=== PATIENT | female | born 1980 | race Caucasian/White ===

== ENCOUNTER 2020-10-24 10:17 | Emergency (ER) | payer OTHER, SELFPAY ==
--- NOTE | 2020-10-24 10:30 | ED.URI ---
HPI - URI/Sore Throat General Chief Complaint: Upper Respiratory Infection Stated Complaint: cough/congestion/chest & back pain Time Seen by Provider: 10/24/20 10:31 Source: patient and RN notes reviewed Mode of arrival: ambulatory Limitations: no limitations History of Present Illness HPI Narrative: 40-year-old female who presents to the [facility] care with complaints of cough with congestion, sinus drainage, discomfort to chest and back when coughing only. Patient states that she has had no shortness of breath or any noted wheezing, no tachypnea or accessory muscle use noted with SAO2 98% on room air. Patient states that she has not taken her temperature but has had chills and had night sweats last night. She states that she has had some yellow tinged sinus drainage and has also expectorated some yellow mucous. Patient states that she has taken Mucinex for her symptoms but no other OTC medications. Patient denies any loss of taste or smell. MD elicited complaint: cough, rhinorrhea and nasal congestion Onset (ago): day(s) (symptoms started yesterday morning) Consistency: progressively worsening Severity: moderate Pain scale (0-10): 2 Description of mucous: yellow Able to tolerate fluids by mouth: Yes Exacerbating factors: deep breaths (increased cough) Relieving factors: nothing Associated symptoms: chills, rhinorrhea, nasal congestion, cough, chest pain and other (Back pain) Treatments prior to arrival: other (Mucinex) Related Data Home Medications Medication Instructions Recorded Confirmed No Home Medications 10/24/20 10/24/20 Allergies Allergy/AdvReac Type Severity Reaction Status Date / Time aspirin Allergy Rash Verified 10/24/20 10:34 Penicillins Allergy Rash Verified 10/24/20 10:34 Sulfa (Sulfonamide Allergy Rash Verified 10/24/20 10:34 Antibiotics) Review of Systems Review of Systems: Narrative: CONSTITUTIONAL: Unknown if fever,positive chills, or sweats. EYES: Denies visual changes, redness, or discharge. ENT: Positive rhinorrhea, congestion,no sore throat, or otalgia. CARDIOVASCULAR: Reports chest pain with cough,no palpitations, or edema. RESPIRATORY: Positive cough denies dyspnea. GASTROINTESTINAL: Denies abdominal pain, nausea, vomiting, or diarrhea. GENITOURINARY: Denies dysuria or hematuria. SKIN: Denies rash or itching. MUSCULOSKELETAL: Reports back pain with cough,no other joint pain, or myalgia. NEUROLOGIC: Denies headache, numbness, or weakness. PSYCHIATRIC: Denies anxiety or depression. All systems reviewed & are unremarkable except as noted in HPI and below PMFSH Past Medical History Medical History (Updated 10/24/20 @ 11:02 by Snow Rhodes NP) Cervical cancer Surgical History Surgical History (Updated 10/24/20 @ 10:57 by Snow Rhodes NP) H/O arthroscopic knee surgery bilateral knees ACL/MCL repairs and meniscus repair left knee H/O: hysterectomy Family History Family History (Updated 10/24/20 @ 11:16 by Snow Rhodes NP) Father Heart disease Grandparent Hypertension Social History Social History (Updated 10/24/20 @ 10:58 by Snow Rhodes NP) Smoking status: Never smoker Alcohol intake: current Substance use: never Gender identity (if verbalized by the patient): Female Comments At time of signature, agree with nursing past medical, surgical, social and family history. There is no relevant family history pertinent to the presenting complaint Exam Narrative: Exam Narrative: GENERAL: Well-appearing, well-nourished,obese and in no acute distress, color pink HEAD: Normocephalic, atraumatic. EYES: PERRLA and EOMI. ENT: Nares red with clear light yellow rhinorrhea no epistaxis. Mucous membranes moist.TM's normal with good light reflex,throat red with tonsils swollen no lesions or exudates noted, post nasal drainage noted NECK: Supple.no lymphadenopathy CHEST: Clear to auscultation. No respiratory distress.SAO2 98% on room air. No tachypnea, no circumo
[2020-10-24 10:33] VITALS: BP 145/68; PULSE 78; RESP 20; TEMP 36.4; O2SAT 98
== END 2020-10-24 11:13 | disposition home or self-care (01) ==
PROVIDERS: Emergency Provider Registered Nurse
DX: J06.9 Acute upper respiratory infection, unspecified (principal); R05 Cough; Z20.828 Contact with and (suspected) exposure to other viral communicable diseases; Z85.41 Personal history of malignant neoplasm of cervix uteri
CPT/HCPCS: 87081; 87804; 87880; 99203; G0463

== ENCOUNTER 2021-10-04 10:32 | Emergency (ER) | payer OTHER, SELFPAY ==
[2021-10-04 10:46] VITALS: BP 140/88; PULSE 78; RESP 18; TEMP 36.3; O2SAT 97
--- NOTE | 2021-10-04 10:53 | ED.WOUNDLAC ---
HPI - Wound/Laceration General Chief Complaint: Wound/Laceration Stated Complaint: Animal bite Lt thumb Source: patient and RN notes reviewed Limitations: no limitations History of Present Illness HPI narrative: The overweight patient, previously mostly healthy with immunizations UTD, presents with cat bite. Patient states she was bitten yesterday by her domestic cat; she complains of mild pain and swelling to the 2 puncture wounds of her flexor left thumb tip pad. Symptoms are mild, better with elevation, associated with scant clear discharge. Discussed plan to provide antibiotics, as she is allergic to penicillin so will prescribe alternate. Related Data Allergies Allergy/AdvReac Type Severity Reaction Status Date / Time Sulfa (Sulfonamide Allergy Intermediate Gastrointestinal Verified 10/04/21 10:48 Antibiotics) Upset aspirin Allergy Mild Rash Verified 10/04/21 10:38 Penicillins Allergy Mild Rash Verified 10/04/21 10:38 Review of Systems Review of Systems: General/Constitutional: No weight loss,fever Eyes: N0: Redness,discharge Ears/Nose/Throat: No: Epistaxis,ear discharge Respiratory: Denies: Hemoptysis Gastrointestinal: No Vomiting, Bleeding-rectal Skin: No Lumps, REPORTS eruption Neurologic: No Focal Weakness,Sz Hematologic: Denies: Petechiae/Purpura Psychiatric: No: Suicida ideationl All Other Systems: Reviewed and Negative PMFSH Past Medical History Medical History (Updated 10/04/21 @ 11:04 by Heber Montgomery MD) Cervical cancer Surgical History Surgical History (Updated 10/24/20 @ 10:57 by Snow Rhodes NP) H/O arthroscopic knee surgery bilateral knees ACL/MCL repairs and meniscus repair left knee H/O: hysterectomy Family History Family History (Updated 10/24/20 @ 11:16 by Snow Rhodes NP) Father Heart disease Grandparent Hypertension Social History Social History (Updated 10/24/20 @ 10:58 by Snow Rhodes NP) Smoking status: Never smoker Alcohol intake: current Alcohol use details: rarely Substance use: never Gender identity (if verbalized by the patient): Female Comments At time of signature, agree with nursing past medical, surgical, social and family history. There is no relevant family history pertinent to the presenting complaint Exam Narrative: General Appearance: Well nourished/obese, conjunctiva clear Ears: External ear normal, Auditory canal normal Nose: Normal nose, Nares clear Mouth/Throat: Normal appearing, Normal lips, Supple Skin: Warm, Dry, Normal color; 2 small puncture wound of the distal flexor tip of the thumb Respiratory: Airway patent, No respiratory distress MS-finger: Nl strength (mostly intact, limited flexion/extension by pain), Tenderness (distally with mild decreased ROM), mold swelling (distally), Other (no anterior drawer, no collateral laxity,) Neurological: A&O x3, Normal affect Course Vital Signs Vital signs: Vital Signs Temperature 97.4 F L 10/04/21 10:46 Pulse Rate 78 10/04/21 10:46 Respiratory Rate 18 10/04/21 10:46 Blood Pressure 140/88 10/04/21 10:46 Pulse Oximetry 97 10/04/21 10:46 Temperature 97.4 F L 10/04/21 10:46 Pulse Rate 78 10/04/21 10:46 Respiratory Rate 18 10/04/21 10:46 Blood Pressure 140/88 10/04/21 10:46 Pulse Oximetry 97 10/04/21 10:46 Discharge Plan Discharge Clinical Impression: Cat bite of finger Qualifiers: Encounter type: initial encounter Qualified Code(s): S61.259A - Open bite of unspecified finger without damage to nail, initial encounter Patient Disposition: Home, Self-Care Condition: Stable Instructions: Antibiotic Form, Animal Bite (ED) Prescriptions: New doxycycline hyclate 100 mg capsule 100 mg PO DAILY Qty: 14 RF: 0 metronidazole 500 mg tablet 500 mg PO Q8H 5 Days Qty: 15 RF: 0 mupirocin 2 % ointment 1 applic TOPICAL TID Qty: 30 RF: 0 Follow-up/Referrals: PHYSICIAN,JAVA DEVELOPER ANALYST [Primary Care Pr
== END 2021-10-04 11:04 | disposition home or self-care (01) ==
PROVIDERS: Emergency Provider Emergency Medicine
DX: S61.052A Open bite of left thumb without damage to nail, initial encounter (principal); W55.01XA Bitten by cat, initial encounter; Z85.41 Personal history of malignant neoplasm of cervix uteri
CPT/HCPCS: 99213; G0463

== ENCOUNTER 2024-04-22 18:22 | Emergency (ER) | payer OTHER, SELFPAY ==
[2024-04-22 18:49] VITALS: BP 107/73; PULSE 82; RESP 18; TEMP 36.9; O2SAT 99
--- NOTE | 2024-04-22 18:50 | ED.EAR ---
HPI - Ear Problem General Chief complaint: Ear Stated complaint: lt ear infection Time Seen by Provider: 04/22/24 18:50 Source: patient Mode of arrival: ambulatory Limitations: no limitations History of Present Illness HPI Narrative: 43-year-old female presents with pain to left ear for 3 days. Yesterday began having tingling and burning sensation behind left ear up into left side of scalp. Worse today. Scalp is not painful. No rash. Patient has appointment with a new primary care physician in 2 weeks. All systems reviewed and negative except as noted above. Related Data Allergies Allergy/AdvReac Type Severity Reaction Status Date / Time Sulfa (Sulfonamide AdvReac Intermediate Gastrointestinal Verified 04/22/24 18:54 Antibiotics) Upset aspirin AdvReac Mild Rash Verified 04/22/24 18:54 Penicillins AdvReac Mild Rash Verified 04/22/24 18:54 Review of Systems Review of Systems: CONSTITUTIONAL: Denies fever, chills, or sweats. EYES: Denies visual changes, redness, or discharge. ENT: Denies rhinorrhea, congestion, sore throat . Reports left ear pain. CARDIOVASCULAR: Denies chest pain, palpitations, or edema. RESPIRATORY: Denies cough or dyspnea. GASTROINTESTINAL: Denies abdominal pain, nausea, vomiting, or diarrhea. GENITOURINARY: Denies dysuria or hematuria. SKIN: Denies rash or itching. Reports burning and tingling sensation behind left ear radiating into left side of scalp. MUSCULOSKELETAL: Denies back pain, joint pain, or myalgia. NEUROLOGIC: Denies headache, numbness, or weakness. PSYCHIATRIC: Denies anxiety or depression. All other systems reviewed are negative, except as documented in HPI. [facility] Past Medical History Medical History (Updated 04/22/24 @ 18:59 by Rose Marie Ruiz NP) Cervical cancer Surgical History Surgical History (Updated 10/24/20 @ 10:57 by Snow Rhodes NP) H/O arthroscopic knee surgery bilateral knees ACL/MCL repairs and meniscus repair left knee H/O: hysterectomy Family History Family History (Updated 10/24/20 @ 11:16 by Snow Rhodes NP) Father Heart disease Grandparent Hypertension Social History Social History (Updated 10/24/20 @ 10:58 by Snow Rhodes NP) Smoking status: Never smoker Alcohol intake: current Alcohol use details: rarely Substance use: never Living arrangements: with family Gender identity (if verbalized by the patient): Female Comments At time of signature, agree with nursing past medical, surgical, social and family history. There is no relevant family history pertinent to the presenting complaint. Exam Narrative: GENERAL: This is a well-nourished, well-developed patient, in no apparent distress. HEAD: normocephalic, atraumatic. EYES: PERRL. Sclera clear/white. Vision is grossly intact. EARS: External ears normal, auditory canals clear and without drainage, TMs normal without perforation. Hearing grossly intact. NOSE: External nose normal with no obvious nasal discharge, nares without redness, no rhinorrhea. THROAT: Mucous membranes moist, posterior pharynx clear. NECK: Neck supple, non-tender without lymphadenopathy, masses or thyromegaly. CARDIOVASCULAR: Regular rate and rhythm without murmurs, gallops, or rubs. RESPIRATORY: Clear to auscultation. Breath sounds equal bilaterally. No wheezes, rales, or rhonchi. SKIN: warm, Dry, intact with no suspicious lesions or rash, good texture and turgor. NEURO: awake, alert, and oriented to person, place and time. There were no obvious focal neurologic abnormalities. EXTREMITIES: No joint tenderness, effusion, or edema noted. Course Course Level of Care: Express Care Visit Vital Signs Vital signs: Vital Signs Temperature 36.9 C 04/22/24 18:49 Pulse Rate 82 04/22/24 18:49 Respiratory Rate 18 04/22/24 18:49 Blood Pressure 107/73 04/22/24 18:49 Pulse Oximetry 99 04/22/24 18:49 Oxygen Delivery Room Air 04/22/24 18:49 Tempera
== END 2024-04-22 19:00 | disposition home or self-care (01) ==
PROVIDERS: Emergency Provider Nurse Practitioner Family; Referring Provider Emergency Medicine
DX: B02.9 Zoster without complications (principal); Z85.41 Personal history of malignant neoplasm of cervix uteri
CPT/HCPCS: 99213; G0463

== ENCOUNTER 2024-05-01 07:58 | Outpatient (CLI) | payer OTHER, SELFPAY ==
--- NOTE | ~2024-05-01 | XR_ITS ---
EXAMINATION: XR chest 2V 05/01/2024 08:39 INDICATION: Left chest and shoulder pain PROCEDURE: 2 view chest COMPARISON: No prior studies for comparison. FINDINGS: The lungs are clear. The cardiomediastinal silhouette is within normal limits. There are no pleural effusions. There is no pneumothorax suspected. IMPRESSION: 1: NO ACUTE CARDIOPULMONARY DISEASE. Reviewed, dictated and finalized at location B.
--- NOTE | ~2024-05-01 | XR_ITS ---
[id number] Ordering provider: Ovi Ren MD History: . Parethesia Left side neck . Comparison: None. FINDINGS: VERTEBRAL BODIES: Normal height and alignment. No visible fracture or subluxation. The dens is intact . Minimal degenerative changes. DISK SPACES: Well maintained. C4-C5 and C6-C7 uncovertebral joint osteoarthritic changes. PARASPINOUS SOFT TISSUES: No prevertebral soft tissue swelling. IMPRESSION: No acute osseous abnormality cervical spine. Reviewed, dictated and finalized at location A.
== END 2024-05-01 07:59 ==
PROVIDERS: PCP Emergency Medicine; Visit Provider Emergency Medicine
DX: R20.2 Paresthesia of skin (principal)
CPT/HCPCS: 71046; 72040

== ENCOUNTER 2024-07-17 10:33 | Outpatient (CLI) | payer OTHER, SELFPAY ==
--- NOTE | ~2024-07-17 | MM_ITS ---
EXAMINATION: MM screening lizzie BI w alonso HISTORY: Screening TECHNIQUE: Craniocaudal and mediolateral oblique 3-D tomosynthesis images were obtained and synthetic 2-D images were generated. CAD analysis was submitted and interpreted. COMPARISON: No prior mammogram is available for comparison at this institution. BREAST PARENCHYMAL COMPOSITION: There are scattered areas of fibroglandular density. FINDINGS: There is no evidence of suspicious mass, calcification, or architectural distortion to sugg est malignancy in either breast. There has been no suspicious interval change. IMPRESSION: 1. No mammographic evidence of malignancy. 2. Recommend routine screening mammography in one year. BI-RADS Category 1: Negative Reviewed, dictated and finalized at location B.
== END 2024-07-17 10:34 ==
PROVIDERS: PCP Emergency Medicine; Visit Provider Emergency Medicine
DX: Z12.31 Encounter for screening mammogram for malignant neoplasm of breast (principal)
CPT/HCPCS: 77063; 77067

== ENCOUNTER 2025-01-14 00:39 | Day surgery (SDC) | payer OTHER, SELFPAY ==
[2024-12-28 13:13] VITALS: BMI 38.0
--- OUTSIDE RECORDS SUMMARY | 2025-01-14 00:41 | XMS_ITS | Data Portability ---
Author Organization [facility] [place] Address [address] [place] [address] Care Team Providers Care Certified Medical Coding Specialist Name Role Phone ALEJANDRA VASQUEZ Primary Care Provider Assessment Encounter Date Assessment Date Assessment LastModified by Organization Details LastModified Time 10/15/2024 10/15/2024 Annual gynecological exam performed. Patient will come back in a year unless there are new symptoms. [email or web address] Not available 10/15/2024 09:44:37 Plan of Treatment Reminders Order Date Submit Date Provider Last Modified By Organization Details Last Modified Time Details Appointments None recorded. Lab None recorded. Referral None recorded. Procedures colonoscopy screening (PROC) 2023 024 [email or web address] [facility], [address], [id number], [place], [address], 4 12:29:34 Surgeries None recorded. Imaging None recorded. Medication Orders venlafaxine ER 37.5 mg capsule,ext ended release 24 hr 2024 025 [facility] [address], [address] [facility], [place], [address], 5 10:20:39 venlafaxine ER 37.5 mg capsule,ext ended release 24 hr 2023 024 [id number], [address] [facility], [place], [place], [id number], 4 12:24:12 Patient TargetsNo targets recorded. Patient InstructionsNo instructions recorded. Reason for Referral None Reported. Procedures Surgical History Date Name Laterality Status Provider Name and Address Organization Details Recorded Time 07/07/20 24 Date of Last Mammogram completed [facility] 10/15/2024 11:54:02 05/19/19 96 Caesarean Section completed [facility] 10/15/2024 12:00:05 Partial Hysterectomy completed [facility] 10/15/2024 11:54:02 Imaging Results None recorded. Procedure Notes None recorded. Medical Equipment None Reported. Allergies Allergen ID Allergen Name Allergen Category Reaction Reaction Severity Criticality Documentation Date Start Date Code Code System Note Provider Name and Address Organization Details Recorded Time 97067 Bactrim medicatio n Not available Not available Not available 10/15/2024 57091 9 [facility] 4 11:54:01 07482 aspirin medicatio n hives severe Not available 10/15/2024 1191 [facility] 4 11:54:01 05775 Penicilli n Not available hives severe Not available 10/15/2024 [facility] 11:[facility]01 Medications Name Sig Start Date Stop Date Status Note LastModified by Organization Details LastModified Time venlafaxine ER 37.5 mg capsule,ext ended release 24 hr Take 1 capsule every day by oral route. 2024 active Not Available Not Available Not Avai lable valacyclovi r 1 gram tablet TAKE 1 TABLET BY MOUTH THREE TIMES DAILY FOR 7 DAYS 10/15 completed Not Available Not Available Not Available folic acid 1 mg tablet TAKE 1 TABLET BY MOUTH DAILY active Not Available Not Available No t Available PreviDent 5000 Plus 1.1 % cream APPLY A SMALL SMEAR OF TOOTHPAST E TO TOOTHBRUS H. BRUSH THOROUGHL Y DAILY FOR 2 MINUTES 01/12 completed Not Available Not Available Not Available metronidazo le 1 % topical gel APPLY TOPICALLY TO THE AFFECTED AREA DAILY 10/15 completed Not Available Not Available Not Available Fish Oil 2024 active Not Available Not Available Not Liang [email or web address] Vitals Date Recorded Body height Body mass index (BMI) Body weight Systolic blood pressure Diastolic blood pressure Provider Name and Address Organization Details Last Updated DateTime 10/15/2024 166.37 cm 41.5 kg/m2 665844.8 7 g 113 mm[Hg] 72 mm[Hg] [facility] 4 11:57:01 Date Recorded Body height Body mass index (BMI) Body weight Systolic blood pressure Diastolic blood pressure Provider Name and Address Organization Details Last Updated DateTime 01/12/2025 166.37 cm 38.5 kg/m2 121133.8 5 g 127 mm[Hg] 74 mm[Hg] [facility] 5 10:02:24 Social History Question Answer Notes LastModified by Organizat ion Details LastModified Time Tobacco Smoking Status Never Smoker [facility] 10/15/2024 11:59:38 Do You Have An Advance Directive? No [email or web address] Information not available 10/15/2024 What Is Your Level Of Alcohol Consumption? None [email or web address] Information not available 10/15/2024 Are You Blind Or Do You Have Difficulty Seeing? No [email or web address] Information not available 10/15/2024 What Is Your Level Of Caffeine Consumption? Occasional [email or web address] Information not available 10/15/2024 How Much Tobacco Do You Chew? None [email or web address] Information not available 10/15/2024 In The 14 Days Before Symptom Onset, Have You Had Close Contact With A Laboratory-confir med COVID-19 While That Case Was Ill? No Information not available 10/15/2024 In The 14 Days Before Symptom Onset, Have You Had Close Contact With A Person Who Is Under Investigation For COVID-19 While That Person Was Ill? No Information not available 10/15/2024 Have You Been To An Area Known To Be High Risk For COVID-19? No [email or web address] Information not available 10/15/2024 Are You Deaf Or Do You Have Serious Difficulty Hearing? No [email or web address] Information not available 10/15/2024 What Type Of Diet Are You Following? REGULAR [email or web address] Information not available 10/15/2024 What Is The Highest Grade Or Level Of School You Have Completed Or The Highest Degree You Have Received? 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 No [email or web address] Information not available 10/15/2024 Do You Use Protection During Sex? No [email or web address] Information not available 10/15/2024 Do You Use Your Seat Belt Or Car Seat Routinely? Yes [email or web address] Information not available 10/15/2024 Are You Sexually Active? Yes [email or web address] Information not available 10/15/2024 Do You Have Smoke And Carbon Monoxide Detectors In Your Home? Yes [email or web address] Information not available 10/15/2024 How Much Tobacco Do You Smoke? No [email or web address] Information not available 10/15/2024 Do You Feel Stressed (tense, Restless, Nervous, Or Anxious, Or Unable To Sleep At Night)? KS00822-0 [email or web address] Information not available 10/15/2024 Do You Use Any Illicit Or Recreational Drugs? No [email or web address] Information not available 10/15/2024 Do You Use Sunscreen Routinely? Yes [email or web address] Information not available 10/15/2024 Have You Used IV Drugs? No [email or web address] Information not available 10/15/2024 Sex: Female Functional Status Question Answer Note LastModified by Organizat ion Details LastModified Time Do you have difficulty walking or climbing stairs? No [email or web address] Information not available 10/15/2024 Are you able to walk? YESWOREST [email or web address] Information not available 10/15/2024 Are you able to care for yourself? Yes [email or web address] Information not available 10/15/2024 Do you have difficulty dressing or bathing? No [email or web address] Information not available 10/15/2024 What is your exercise level? Moderate [email or web address] Information not available 10/15/2024 Mental Status None recorded. Family History Relationship Description Onset Age of this Age Resolved Age Notes LastModified by Organization Details LastModified Time Unspecified Relation Family history unknown [email or web address] Not available 2023 11:54:02 Medical History Condition Response Cancer Y Gynecological History Statement/Question Response Date of Last Mammogram 07/07/2024 On BCP's at Conception? N N STIs/STDs N Was last menstrual period normal N HPV Vaccine N Current Control Method None Sexually Active? Y None Date of Last Pap Smear Sexual Problems? N Desired Control Method None LMP Unknown N Obstetrics History GPAL:G 1 P 1 0 0 1 Type Value Full Term 1 Living 1 Total 1 Past Encounters Encounter ID Performer Location Encounter Start Date Encounter Closed Date Diagnosis/Indication Diagnosis SNOMED-CT Code Diagnosis ICD10 Code Diagnosis Note [id number] WAQAR DELGADO, VINNY [place] [address] [address] 10/15/2024 11:48:25 10/15/2024 13:24:17 Gynecologic examination [id number] Z01.419 Annual gynecologi wendy exam performed. Patient will come back in a year unless there are new symptoms. Suggest Calcium with Vitamin D if not eating in diet. Patient advised to get annual flu shot. Recommend yearly physicals and perform monthly breast exams. Genetic testing is available for patients with family history of cancer. Engage in safe sexual practices, use condoms. Encouraged to have daily exercise. Avoid tobacco and illicit drugs, moderation of alcohol. If BMI greater than 25 dietary consult advised. If you have any questions please call or email. mammogram- 07/07/14 per pt - WNL colon cancer screening - GI referral for colonoscop y to [facility] DEXA scan- n/a Pap smear- Patient unsure of last pap smear date, states that previous provider d/c paps d/t hyst.Offer ed pap smear off of vaginal cuff, pt declined. Will obtain records of pap smear hx. laboratory evaluation - PCP STI testing - declined Menopausal flushing 1983 00550 N95.1 Discussed all treatment options for menopausal vasomotor symptoms, including HRT, SSRI/SNRIs , and Veozah. Patient advised of the risks and benefits associated with each method.Pat ient interest in Effexor to treat hot flashes. Discussed possible adverse effects. Patient to take medication by mouth daily. Patient will report any new or worsening symptoms.R TO in three months for med check. Screening colonoscopy 44 0374168 Z12.11 [id number] WAQAR DELGADO NP [place] [address] [address] 01/12/2025 09:46:26 01/12/2025 10:25:59 Menopausal flushing 955587055 N95.1 Reviewed all treatment options for menopausal vasomotor symptoms, including HRT, SSRI/SNRIs , and Veozah.Merlene gary reports doing well on Effexor. Recommende d taking medication in the evening to see if this will help with night sweats/ins omnia. Discussed that the dosage of Effexor can also be increased. Patient will report any new or worsening symptoms.R efills sent.RTO for next WWE or sooner if needed. Health Concerns Section Related Observation LastModified by Organization Detai ls LastModified Time None Recorded Concern Status LastModified by Organization Details LastModified Time None Recorded Advance Directives Directive N: Payers Encounter Date Sequence Insurance Name Policy Number Policy Crane Covered Member ID Crane Member ID Guarantor Name 10/15/2024 1 [facility] [id number] Donate Your Desktop Marcie [id number] Dennise Marcie 01/12/2025 1 [facility] [id number] [facility] [id number] [facility] Notes Date Note Type Note Provider Name and Address Organization Details Recorded Time 10/15/2024 text/html Annual GYNReport ed bypatient.Urinary symptoms:No hematuria; No incontinence Vulva:No genital lesion Vagina:Normal vaginal discharge Breast:No breast pain; No breast lump; No nipple discharge Sexual complaints:No sexual complaints; No pain during intercourse; Normal libido Menopausal Symptoms:No menopausal symptoms; Normal vaginal lubrication Psychological symptoms:No depression; No anxiety; No PMDD Preventive measures:Encourage self breast examination; Encourage regular exercise; Encourage no tobacco use; Encourage regular mammograms starting age 40; Mammogram performed within the past year; Needs to schedule colonoscopy New patient presents to establish care.Hysterectomy in 2003 d/t cervical cancer.Patient reports hot flashes and night sweats for the past 9 months, concerned about perimenopause. WAQAR DELGADO NP [address], [place], [address], [facility] 10/15/2024 13:22:35 01/12/2025 text/html Patient here for three month med check.Patient started Effexor 37.5 mg for vasomotor symptoms.Patient states that she is doing well and her hot flashes have improved, denies AEs. Patient reports occasional night sweats that will wake her up. WAQAR DELGADO, VINNY [address], [place], [address], [facility] 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 Status 10/15/20 24 1 CLOSED Fetus Data First Name Last Name Admitted to NICU Weight (g) Sex Living Outcome Pediatric Complications Fetus ID Race Codes Race Delivery Type 4082.32 8 M Full Term [id number] Primary Akhil Calculation Initial Akhil Date Initial Exam Date Initial Exam Provider Initial Ultrasound Date Last Menstrual Period Date Ultra Sound Weeks Gestation 0 Eighteen To Twenty Week Akhil Update Ultra Sound Date Fundal Height At Umbil Quickening Date Ultra Sound Latest Weeks Gestation Final Akhil Confirmed By Final Akhil Confirmed Date Final Akhil Date Ultra Sound Latest Days Gestation 0 0 Menstrual History Last Menstrual Date Menses Monthly On Bcp Conception Prior Menses Frequency Hcg Plus Date Menarche Onset Age Delivery Information Delivery Date Delivery Type Labor Anesthesia Weeks Gestation Incision Type Labor Labor Length Hrs Delivered By Post Complications Tubal Sterilization Discharge Date Comments 6 40 Discharge Information Feeding Method Contraceptive Method Maternal HG B and HCT Levels
[2025-01-14 10:01] VITALS: BP 120/66; PULSE 90; RESP 16; TEMP 36.2; O2SAT 98
[2025-01-14] MEDS: LACTATED RINGERS 1,000 ML 150 ML IV CONT (10:08)
--- NOTE | 2025-01-14 11:03 | P.PNAN_ITS ---
Anes - Initial Pre Proc Eval Procedure: Operation Date: 01/14/25 11:00 Proposed Procedures p Screening Colonoscopy - Willy Goff MD Date/Time: 01/14/25 11:03 Surgeon: Willy Goff MD Pre Op Diagnosis: screening colon Patient Data Age: 44 Gender: F Height: 1.68 m Weight: 105.8 kg Last Vital Signs Temp 97.2 F L 01/14/25 10:01 Pulse 90 01/14/25 10:01 Resp 16 01/14/25 10:01 BP 120/66 01/14/25 10:01 Pulse Ox 98 01/14/25 10:01 O2 Del Method Room Air 01/14/25 10:01 Allergies Allergy/AdvReac Type Severity Reaction Status Date / Time Sulfa (Sulfonamide AdvReac Intermediate Gastrointestinal Verified 01/14/25 09:59 Antibiotics) Upset aspirin AdvReac Mild Rash Verified 01/14/25 09:59 Penicillins AdvReac Mild Rash Verified 01/14/25 09:59 Home Medications ?Medication ?Instructions ?Recorded ?Confirmed ?Type folic acid 1 mg tablet 1 mg PO DAILY 12/28/24 01/14/25 History venlafaxine 37.5 mg 37.5 mg PO DAILY 12/28/24 01/14/25 History capsule,extended release 24 hr Patient hx anesthesia problems: none Family hx anesthesia problems: none Results Review: All pre-operative results and documents have been reviewed as part of the pre- operative evaluation. [facility] Past Medical History Medical History Cervical cancer Surgical History Surgical History H/O arthroscopic knee surgery bilateral knees ACL/MCL repairs and meniscus repair left knee H/O: hysterectomy Family History Family History Father Heart disease Grandparent Hypertension Social History Social History Smoking status: Never smoker Alcohol intake: never Alcohol use details: rarely Substance use: never Substance use type: marijuana Other substance usage details: daily marijuana smoker Living arrangements: with family Gender identity (if verbalized by the patient): Female Spiritual care concerns: No Anes - Eval Final PreProcedure Day of Procedure 01/14/25 11:03 Patient weight: obese Lungs: normal air movement Neurological: alert and oriented Last oral intake: >/= 8 hours ASA classification: III Emergent: no Anesthetic plan: proceed Anesthesia type and monitoring: general GIVS and standard monitoring Results Review: All pre-operative results and documents have been reviewed as part of the pre- operative evaluation. DIANA on CPAP, daily cannibis used, none since last night. Informed Consent: The patient's anesthetic plan and its attendant risks and benefits were discussed with the patient/family/POA. Questions were solicited and answers provided to the satisfaction of the patient/family/POA.
--- NOTE | 2025-01-14 11:12 | PM.IMHP ---
H&P: HPI History of Present Illness Date/Time: 01/14/25 11:12 Chief Complaint: Screening colonoscopy Narrative: This is the patient's first colonoscopy. There are no GI symptoms and there is no family history of colorectal cancer. Review of Systems Review of Systems: All systems reviewed & are unremarkable except as noted in HPI and below PMFSH Past Medical History Medical History Cervical cancer Surgical History Surgical History H/O arthroscopic knee surgery bilateral knees ACL/MCL repairs and meniscus repair left knee H/O: hysterectomy Family History Family History Father Heart disease Grandparent Hypertension Social History Social History Smoking status: Never smoker Alcohol intake: never Alcohol use details: rarely Substance use: never Substance use type: marijuana Other substance usage details: daily marijuana smoker Living arrangements: with family Gender identity (if verbalized by the patient): Female Spiritual care concerns: No Meds Home Medications and Allergies Home Medications ?Medication ?Instructions ?Recorded ?Confirmed ?Type folic acid 1 mg tablet 1 mg PO DAILY 12/28/24 01/14/25 History venlafaxine 37.5 mg 37.5 mg PO DAILY 12/28/24 01/14/25 History capsule,extended release 24 hr Allergies Allergy/AdvReac Type Severity Reaction Status Date / Time Sulfa (Sulfonamide AdvReac Intermediate Gastrointestinal Verified 01/14/25 09:59 Antibiotics) Upset aspirin AdvReac Mild Rash Verified 01/14/25 09:59 Penicillins AdvReac Mild Rash Verified 01/14/25 09:59 Vital Signs Vital Signs - 24 hr 01/14/25 10:01 Temperature 97.2 F L Pulse Rate 90 Respiratory Rate 16 Blood Pressure 120/66 Pulse Oximetry 98 Oxygen Delivery Room Air Exam Const: General: cooperative and healthy appearing Resp: Effort & Inspection: normal respiratory effort and able to speak in complete sentences Auscultation: clear to auscultation bilaterally Cardio: Rate: regular rate Rhythm: regular rhythm GI: Inspection: normal to inspection GI Palp: No No hepatosplenomegaly present Auscultation: normal bowel sounds Rectal Exam: deferred Skin: General skin exam: normal color Psych: Appearance: grossly normal Mental Status: mental status grossly normal Assessment and Plan Assessment and plan (1) Encounter for screening colonoscopy: Code(s): Z12.11 - Encounter for screening for malignant neoplasm of colon Status: Acute Assessment and Plan: The patient is deemed a good candidate for the procedure. Consent signed. Will proceed.
[2025-01-14 11:33] VITALS: BP 107/58; PULSE 80; RESP 17; O2SAT 97
[2025-01-14 11:43] VITALS: BP 114/75; PULSE 72; RESP 14; O2SAT 100
[2025-01-14 11:53] VITALS: BP 120/61; PULSE 69; RESP 19; O2SAT 100
== END 2025-01-14 12:04 | disposition home or self-care (01) ==
PROVIDERS: PCP Emergency Medicine; Referring Provider Student in an Organized Health Care Education/Training Program; Visit Provider Internal Medicine Gastroenterology
PROC: 0DJD8ZZ Inspection of Lower Intestinal Tract, Via Natural or Artificial Opening Endoscopic (ICD-10-PCS; CPT 45378; principal; 2025-01-14 11:00)
DX: Z12.11 Encounter for screening for malignant neoplasm of colon (principal); F12.90 Cannabis use, unspecified, uncomplicated; E66.9 Obesity, unspecified; Z68.37 Body mass index [BMI] 37.0-37.9, adult
CPT/HCPCS: 45380; 88305; J2003; J2704; J7120

== ENCOUNTER 2025-07-20 11:29 | Outpatient (CLI) | payer OTHER, SELFPAY ==
--- NOTE | ~2025-07-20 | MM_ITS ---
EXAMINATION: MM screening lizzie BI w alonso HISTORY: Screening TECHNIQUE: Craniocaudal and mediolateral oblique 3-D tomosynthesis images were obtained and synthetic 2-D images were generated. CAD analysis was submitted and interpreted. COMPARISON: 07/17/2024. BREAST PARENCHYMAL COMPOSITION: There are scattered areas of fibroglandular density. FINDINGS: There is no evidence of suspicious mass, calcification, or architectural distortion to suggest malignancy in either breast. IMPRESSION: 1. No mammographic evidence of malignancy. 2. Recommend routine screening mammography in one year. BI-RADS Category 1: Negative Reviewed, dictated and finalized at location B.
== END 2025-07-20 11:30 | disposition home or self-care (01) ==
LOC: MICIMG 11:30
PROVIDERS: PCP Emergency Medicine; Visit Provider Emergency Medicine
DX: Z12.31 Encounter for screening mammogram for malignant neoplasm of breast (principal)
CPT/HCPCS: 77063; 77067